=== PATIENT | female | born 1965 | race Caucasian/White ===

== ENCOUNTER → 2017-08-29 | Outpatient (CLI) | payer OTHER ==
--- NOTE | 2017-08-29 14:07 | DIAGNOSTIC IMAGING REPORT ---
PELVIC COMPLETE NON OB CLINICAL HISTORY: ABDOMINAL PAIN PAIN. NAUSEA. COMPARISON STUDY: None FINDINGS: The uterus measured 8.4 cm. The endometrial stripe measured 1.8 cm. Small 1.5 cm uterine fibroid. Several small cervical nabothian cysts.. The right ovary measured 4.6 cm including a 2.3 cm cyst. Normal vascular flow.. The left ovary measured 3.6 cm maximum dimension with several small follicular cyst measuring 2 x 1.9 cm. Normal vascular flow. There is no ultrasonographic evidence of ovarian torsion. It should be noted that ovarian torsion can be present with normal Doppler ultrasonographic findings. There was no evidence of pathologic free pelvic fluid. IMPRESSION: 1. Moderate endometrial thickening at 1.8 cm. 2. Follow-up is recommended to exclude endometrial hyperplasia versus neoplasia. 3. Small 1.5 cm uterine fibroid. 4. Several small cervical cysts. 5. Bilateral ovarian cysts measuring 2.3 cm on the right and 1.9 cm on the left. The above report was generated using voice recognition software. It may contain grammatical, syntax or spelling errors. Electronically signed by: Soto Starr M.D. 08/29/2017 2:06 PM Dictated Date/Time: 08/29/2017 2:02 PM
== END | disposition home or self-care (01) ==
LOC: C.ULTR 12:40
PROVIDERS: ATTEND Family Medicine Adolescent Medicine
DX: R10.9 Unspecified abdominal pain (principal); D25.9 Leiomyoma of uterus, unspecified; N88.8 Other specified noninflammatory disorders of cervix uteri; N83.201 Unspecified ovarian cyst, right side; N83.202 Unspecified ovarian cyst, left side

== ENCOUNTER → 2017-10-05 | Outpatient (CLI) | payer OTHER ==
[~2017-10-05] MED LIST: OPTIRAY 320 IV PRN
--- NOTE | 2017-10-05 09:07 | DIAGNOSTIC IMAGING REPORT ---
ABDOMEN AND PELVIS CT WITH IV AND ORAL CONTRAST CT DOSE: 995.70 mGycm HISTORY: Acute generalized abdominal pain ABDOMINAL PAIN/DISCOMFORT TECHNIQUE: Multiaxial CT images of the abdomen and pelvis were performed following the use of intravenous and oral contrast. A dose lowering technique was utilized adhering to the principles of ALARA. COMPARISON STUDY: CT 03/17/2008. FINDINGS: Minimal subsegmental right basilar atelectasis. There is no pneumatosis or pneumoperitoneum. Air is noted within the main pulmonary artery, and right ventricle, likely representing. Heart otherwise is unremarkable. Liver is mildly enlarged with fatty infiltration. The spleen, pancreas, gallbladder and adrenal glands are within normal limits. 4 mm nonobstructing calculus of the inferior pole left kidney. Urinary bladder is partially decompressed. Ureters are unremarkable. 2.1 x 1.7 cm nabothian cyst of the left cervix. Follicular changes about the left ovary. Partially cystic and partially hyperattenuating lesion of the right adnexum measures 3.1 x 2.8 x 3.9 cm, image 366 of series 3. Just inferiorly to this there is a cystic lesion measuring 3.7 x 3.6 x 3.0 cm on image 44 of series 3 in the right adnexum. Aorta is normal in course and caliber. No bulky adenopathy. No bowel obstruction or focal bowel wall thickening. Minimal colonic diverticulosis without CT evidence of acute diverticulitis. Normal appendix. Soft tissues are unremarkable with mild diastases recti. Degenerative changes of the SI joints. Facet arthrosis of the lumbar spine. IMPRESSION: 1. Mixed cystic and hyperattenuating lesion of the right ovary measuring up to 3.9 cm suggests hemorrhagic cyst. Additionally, there is a 3.7 cm right ovarian cyst present. These findings could be correlated with pelvic ultrasound. 2. Hepatomegaly with hepatic steatosis. 3. No bowel obstruction or focal bowel wall thickening. Normal appendix. 4. 4 mm nonobstructing calculus of the inferior pole right kidney. Electronically signed by: Eric Noguera M.D. 10/05/2017 9:06 AM Dictated Date/Time: 10/05/2017 8:57 AM
== END | disposition home or self-care (01) ==
LOC: C.CTS 08:19
PROVIDERS: ATTEND Family Medicine
DX: R10.9 Unspecified abdominal pain (principal); N20.0 Calculus of kidney; N83.201 Unspecified ovarian cyst, right side; R16.0 Hepatomegaly, not elsewhere classified; K76.0 Fatty (change of) liver, not elsewhere classified

== ENCOUNTER → 2017-10-08 | Outpatient (CLI) | payer OTHER ==
--- NOTE | 2017-10-08 17:42 | DIAGNOSTIC IMAGING REPORT ---
PELVIC COMPLETE NON OB CLINICAL HISTORY: 51 years-old Female presenting with ABD/PEL PAIN, OVARIAN CYST SHOWN ON CT, , heavy bleeding during menses, history of tubal ligation in 2004, not on contraceptive, right lower quadrant pain and cervical discomfort with bloating. TECHNIQUE: Real-time grayscale and color and spectral Doppler ultrasound imaging of the pelvis was performed first using a transabdominal probe and subsequently transvaginal for better characterization. COMPARISON: 08/29/[address] from 10/05/2017. FINDINGS: Uterus: An intramural fairly well-defined heterogeneously hyperechoic uterine lesion is evident, which measures 1.6 x 1.4 x 1.1 cm. Anteverted retroflexed. The uterus measures 8.0 x 5.1 x 5.3 cm. Endometrial stripe measures 6 mm in thickness. Endometrium normal-appearing. Cervix contains both in cysts. Right adnexa: Right ovary contains a 2.9 x 3.4 x 3.4 cm cyst with a peripheral/mural focus of apparent soft tissue. No convincing evidence of internal color Doppler flow within this nodule. Adjacent to the right ovary in the right adnexa at the level of the right uterine fundus is a well-defined 3.6 x 3.8 x 3.0 cm mass isoechoic to the uterine myometrium, exophytically arising from the uterine myometrium consistent with a subserosal exophytic fibroid. Right ovary measures 4.1 x 3.5 x 4.3 cm. Normal color Doppler flow and arterial and venous waveforms within the ovarian parenchyma. Left adnexa: Left ovary contains a dominant follicle. Left ovary measures 3.5 x 2.0 x 2.6 cm. Normal color Doppler flow and arterial and venous waveforms within the ovarian parenchyma. Free fluid noted in the left adnexa. Other: Trace free fluid, likely physiologic. IMPRESSION: 1. Fibroid uterus, including a prominent 3.6 x 3.8 x 3.0 cm right exophytic subserosal fibroid. 2. Partially solid partially cystic right ovarian cyst. This is indeterminate given the presence of apparent mural soft tissue. Differential considerations include a hemorrhagic cyst with retractile clot as well as ovarian neoplasm (benign, borderline, or malignant). Gynecologic consultation as well as short-term interval follow-up pelvic ultrasound in 4-6 weeks versus contrast-enhanced pelvic MR to be considered. 3. No ovarian torsion. 4. Normal endometrium. The report will be called/faxed according to standard departmental protocol. Electronically signed by: Jaycob Khanna M.D. 10/08/2017 5:40 PM Dictated Date/Time: 10/08/2017 5:30 PM
== END | disposition home or self-care (01) ==
LOC: C.ULTR 15:49
PROVIDERS: ATTEND Family Medicine
DX: R10.9 Unspecified abdominal pain (principal); D25.9 Leiomyoma of uterus, unspecified; N83.201 Unspecified ovarian cyst, right side

== ENCOUNTER → 2018-01-28 | Outpatient (CLI) | payer OTHER ==
[~2018-01-28] MED LIST changes: +FLUT0.15 NAE; +GUAI1TAB55 PO; +MONT1TAB3 PO; -OPTIRAY 320 IV PRN
--- NOTE | 2018-01-28 10:33 | DIAGNOSTIC IMAGING REPORT ---
ULTRASOUND OF THE PELVIS CLINICAL HISTORY: Pelvic pain. Follow-up pelvic lesion. COMPARISON STUDY: Pelvic ultrasound dated 10/08/2017. Pelvic CT dated 10/05/2017 TECHNIQUE: Real-time, grayscale, and color flow sonography of the pelvis is performed both transabdominally and endovaginally. Images are reviewed in the transverse and longitudinal planes. FINDINGS: Uterus: The retroverted uterus is normal in size and echotexture, measuring 7.4 x 5.4 x 5.3 cm. An echogenic lesion in the anterior body measures up to 1.7 cm, likely representing a fibroid/lipoleiomyoma. An intramural fibroid in the fundus measures up to 1.1 cm. Nabothian cysts measure up to 2.4 cm. Endometrium: The endometrium is top normal in thickness, measuring up to 1.2 cm. Ovaries: The ovaries are normal in size and morphology. The right ovary measures 3.2 x 1.8 x 2.0 cm and the left ovary measures 3.8 x 2.6 x 2.1 cm. A 2.0 cm dominant follicle is noted in the left ovary. A lobulated soft tissue lesion is seen located between the uterine fundus and the right ovary, measuring up to 4.2 cm. Normal Doppler waveforms are shown within both ovaries. Pelvis: There is a small volume of free fluid in the cul-de-sac. No concerning adnexal lesion is seen. IMPRESSION: 1. There is a 4.2 cm solid lesion identified between the uterine fundus and the right ovary. When correlated with prior studies, this may represent a calculated/exophytic fibroid. A solid ovarian mass lesion is not excluded, and this cannot differentiate by imaging due to the close proximity of these structures. Surgical consultation is advised. 2. Additional uterine fibroids are identified. 3. There is a small volume of free fluid in the cul-de-sac, likely within physiologic limits. Electronically signed by: Jeffy Gary M.D. 01/28/2018 10:32 AM Dictated Date/Time: 01/28/2018 10:19 AM
== END | disposition home or self-care (01) ==
LOC: C.ULTRBC 08:08
PROVIDERS: ATTEND Obstetrics & Gynecology
DX: N83.209 Unspecified ovarian cyst, unspecified side (principal); R14.0 Abdominal distension (gaseous); R10.13 Epigastric pain